=== PATIENT | female | born 1965 | race Caucasian/White ===

== ENCOUNTER → 2018-05-24 | Outpatient (CLI) | payer OTHER ==
[2018-05-24 08:13] LABS: ANION GAP 12 (8-16); CARBON DIOXIDE 28 mmol/L (21-31); CHLORIDE 109 mmol/L (97-110); POTASSIUM 4.4 mmol/L (3.5-5.1); SODIUM 145 mmol/L (135-144)
[2018-05-24 08:27] LABS: BLOOD UREA NITROGEN 14 mg/dl (7-20); CALCIUM 9.7 mg/dl (8.4-10.2); CREATININE 0.66 mg/dl (0.44-1.00); GLUCOSE 99 mg/dl (70-220)
[2018-05-24] MEDS: NITROGLYCERIN AEROSOL (4.9 GM) (09:20)
[2018-05-24] MEDS: SOD CHLORIDE 0.9% 100 ML (09:39)
[2018-05-24] MEDS: IOHEXOL 100 ML (09:39)
== END | disposition home or self-care (01) ==
LOC: LAB 07:14
DX: R94.39 Abnormal result of other cardiovascular function study (principal); R06.02 Shortness of breath
CPT/HCPCS: 75571; 75574; 80048